=== PATIENT | female | born 1990 | race Caucasian/White ===

== ENCOUNTER 2018-12-14 07:13 | Emergency (ER) | payer SELFPAY ==
[~2018-12-14] VITALS: Ht 170.2 cm; Wt 148.8 kg
[~2018-12-14 07:13] MED LIST: FERR-15 PO; HYDR25TA32 PO; [UNRECOGNIZED DRUG - CODE] PO
[2018-12-14 07:20] VITALS: BP 116/64
[2018-12-14 07:21] VITALS: BP 116/64
--- NOTE | 2018-12-14 07:29 | NUR ---
PT AMB TO BED 8 WITH STEADY GAIT
--- NOTE | 2018-12-14 07:30 | NUR ---
28 Y FEMALE C/O EPIGASTRIC PAIN ACCOMPANIED WITH N/V/D SINCE YESTERDAY. LAST BM THIS AM. ABDOMEN ROUND AND SOFT, BOWEL SOUNDS ACTIVE IN ALL 4 QUADRANTS. AA0X4. VSS AT THIS TIME. BED IS DOWN, LOCKED, BED RAIL X 1, ERMD TO SEE PT. PT [place] SPEAKING ONLY. HX CHOLECYSTECTOMY
--- NOTE | 2018-12-14 07:47 | NUR ---
PT STATES SHE CANT USE THE RESTROOM AT THIS TIME
--- NOTE | 2018-12-14 07:51 | NUR ---
Dr. Champagne evaluating patient at bedside.
[2018-12-14] MEDS ORDERED: NACL 0.9% 1,000 ML IV ONE (07:55)
[2018-12-14] MEDS ORDERED: ONDANSETRON 4 MG/2 ML VIAL IVP ONE (07:55)
--- NOTE | 2018-12-14 08:09 | NUR ---
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
[2018-12-14 08:17] LABS: HEMATOCRIT 38.1 % (36-48); HEMOGLOBIN 12.5 g/dL (12.0-16.0); MEAN CORPUSCULAR HEMOGLOBIN 25 pg (27-31); MEAN CORPUSCULAR HGB CONC 33 g/dL (33-37); MEAN CORPUSCULAR VOLUME 76.3 fL (80-94); PLATELET COUNT (AUTO) 239 K/uL (140-450); RED CELL DISTRIBUTION WIDTH 15.9 % (11.6-13.7); WHITE BLOOD COUNT (AUTO) 6.7 K/uL (4.8-10.8)
[2018-12-14 08:29] LABS: ANION GAP 10.3 (8-16); CARBON DIOXIDE 27.2 mmol/L (21-32); CREATININE 0.6 mg/dL (0.6-1.3); POTASSIUM 3.5 mmol/L (3.5-5.1); TOTAL BILIRUBIN 0.3 mg/dL (0.0-1.0)
[2018-12-14 08:37] LABS: LYMPHOCYTES % (MANUAL) 15 % (20-46); METAMYELOCYTES % 1 % (0-0); MYELOCYTES % 1 % (0-0)
[2018-12-14 08:38] LABS: EOSINOPHILS % (MANUAL) 1 % (0-4); MONOCYTES % (MANUAL) 9 % (5-12)
--- NOTE | 2018-12-14 08:57 | NUR ---
DR STOLL RE-EVALUATING BEDSIDE
--- NOTE | 2018-12-14 08:59 | NUR ---
Patient discharged BY DR STOLL. Written and verbal after care instructions given and explained BY DR STOLL. Patient Ambulatory with steady gait.
== END 2018-12-14 08:59 | disposition home or self-care (01) ==
LOC: MED 07:13
DX: A08.4 Viral intestinal infection, unspecified (principal); I10 Essential (primary) hypertension; Z90.49 Acquired absence of other specified parts of digestive tract
CPT/HCPCS: 36415; 80053; 83690; 85025; 96361; 96374; 99283; J2405; J7030

== ENCOUNTER 2019-01-29 11:22 | Emergency (ER) | payer SELFPAY ==
[~2019-01-29] VITALS: Ht 175.3 cm; Wt 149.7 kg
[2019-01-29 11:33] VITALS: BP 117/87
--- NOTE | 2019-01-29 11:37 | NUR ---
PT AMB TO BED 6 WITH STEADY GAIT
--- NOTE | 2019-01-29 11:44 | NUR ---
29F C/O 10 SORE THROAT AND BL NECK PAIN UPON AWAKENING THIS AM. DENIES COUGHING. AFEBRILE. DIFFUSE ERYTHEMATOUS OROPHARYNX WITH TONSILAR SWELLING NOTED. ANT CERV LYMPH NODES TENDER TO PALPATION. PREFERS [facility]- DENIES RX- DENIES
[2019-01-29 12:17] VITALS: BP 117/87
== END 2019-01-29 12:17 | disposition home or self-care (01) ==
LOC: MED 11:22
DX: J02.9 Acute pharyngitis, unspecified (principal); I10 Essential (primary) hypertension
CPT/HCPCS: 99282

== ENCOUNTER 2019-05-26 16:11 | Emergency (ER) | payer SELFPAY ==
[~2019-05-26] VITALS: Ht 170.2 cm; Wt 149.2 kg
[2019-05-26 16:17] VITALS: BP 134/96
--- NOTE | 2019-05-26 16:29 | NUR ---
Pt ambulated to bed 9.
--- NOTE | 2019-05-26 16:45 | NUR ---
PT PRESENTS TO ED FOR EVALUATION OF FLU LIKE SYMPTOMS X 2 DAYS. AAO X4, GCS 15, AMBULATORY WITH STEADY GAIT. RESPIRATIONS EVEN AND UNLABORED, BL LUNG CLEAR. C/O NON PRODUCTIVE COUGH. SKIN WARM/PINK./DRY, +PMSC. VS WNL. ED PROVIDER MADE AWARE OF PT STATUS. WILL CONTINUE TO MONITOR
--- NOTE | 2019-05-26 17:35 | NUR ---
Patient discharged with v/s stable. Written and verbal after care instructions given and explained. Patient alert, oriented and verbalized understanding of instructions. Ambulatory with steady gait. All questions addressed prior to discharge. ID band removed. Patient advised to follow up with PMD. Rx of PROMETHAZINE DM, MOTRIN 400 MG, TAMIFLU 75 MG,ZOFRAN ODT 4 MG given. Patient educated on indication of medication including possible reaction and side effects. Opportunity to ask questions provided and answered.
[2019-05-26 17:36] VITALS: BP 161/88
== END 2019-05-26 17:35 | disposition home or self-care (01) ==
LOC: MED 16:11
DX: J10.1 Influenza due to other identified influenza virus with other respiratory manifestations (principal); I10 Essential (primary) hypertension; Z90.49 Acquired absence of other specified parts of digestive tract
CPT/HCPCS: 81025; 87804; 99283